=== PATIENT | female | born 1950 ===

== ENCOUNTER → 2017-08-15 | Day surgery (SDC) | payer OTHER ==
[~2017-08-15] MED LIST: HUMULIN 70100 UNIT/1; HUMULIN 70100 UNIT/2; MACROBID 100 M100 MG PO; PLAVIX75 MG PO; TRANDOLAPRIL4 MG PO; ULTRACET PO; VERAPAMIL ER180 MG PO
== END | disposition home or self-care (01) ==
LOC: ADM 08-08 11:00 → CIR.AMB 05:22
DX: N81.11 Cystocele, midline (principal); N81.5 Vaginal enterocele